=== PATIENT | male | born 1965 | race Caucasian/White ===

== ENCOUNTER 2019-05-07 05:30 | Inpatient (IN) | payer OTHER ==
[~2019-05-07] VITALS: Ht 180.3 cm; Wt 97.5 kg
[2019-05-07 05:38] VITALS: Ht 180.3 cm; Wt 97.5 kg
[2019-05-07 06:41] LABS: microscopic required? NO
[2019-05-07 06:49] LABS: BASOPHIL % 0.7 % (0-2); PLATELET COUNT 291 x10^3mcL (130-400); RED CELL DISTRIBUTION WIDTH 13.7 % (11.5-14.5)
--- NOTE | 2019-05-07 07:01 | NUR ---
PATIENT SEEN WITH COMPLAINT OF BODY PAIN, COUGH AND CHEST PAIN X 3 WEEKS. STARTED ON [place] A WEEK AGO FOR PNEUMONIA. PATIENT WAS SEEN BY DR HARPER. SALINE LOCK INSERTED. FLUID IS INFUSING ORDERED.
[2019-05-07 07:03] LABS: CALCIUM 8.9 mg/dL (8.5-10.1); CARBON DIOXIDE 25.3 mmol/L (21-32); CHLORIDE SERUM 105 mmol/L (98-107); CREATININE SERUM 0.9 mg/dL (0.7-1.3); GFR1 > 60 mL/min; GLUCOSE SERUM 226 mg/dL (74-106); POTASSIUM SERUM 4.1 mmol/L (3.5-5.1); SODIUM SERUM 141 mmol/L (136-145)
[2019-05-07 07:03] LABS: UA SPECIFIC GRAVITY >=1.030 (1.005-1.035); urine erythrocyte NEGATIVE (NEGATIVE)
--- NOTE | 2019-05-07 07:08 | NUR ---
PATIENT IS SLEEPING. FLUID IS INFUSING ORDERED.
[2019-05-07 07:09] LABS: ALBUMIN 3.4 g/dL (3.4-5.0); ALKALINE PHOSPHATASE 108 U/L (46-116); ALT/SGPT 40 U/L (16-63); AST/SGOT 23 U/L (15-37); BILIRUBIN TOTAL 0.4 mg/dL (0.20-1.00); TOTAL PROTEIN, SERUM 7.3 g/dL (6.4-8.2)
--- NOTE | 2019-05-07 07:15 | NUR ---
RESTING ASLEEP ER # [id number] HOB @ 45 degrees sr up,ivf infusing well via iv pump,one at bolus rate the other at 150 ml/hr rate.pt tolerated procedures with no incidents.awaits test results,reevaluations.jenny.
--- NOTE | 2019-05-07 07:52 | NUR ---
DIEGO GONZALEZ AT BEDSIDE FOR REEvaluations.jenny solano.o2 sat monitor on.awaits reevaluations.
--- NOTE | 2019-05-07 08:15 | NUR ---
ambulated to/from bathroom on his own with no problems.pt tolerated procedures with no incidents.jenny solano.awaits reevaluations.
[2019-05-07] MEDS ORDERED: ACARBOSE25 MG PO (08:20)
[2019-05-07] MEDS ORDERED: PROMETHAZINE W120 ML PO (08:22)
[2019-05-07] MEDS ORDERED: COZAAR25 M1 (08:24)
[2019-05-07] MEDS ORDERED: METFORMIN HYDR500 M1 (08:26)
[2019-05-07] MEDS ORDERED: VITAMIN D50000 I4 (08:27)
[2019-05-07] MEDS ORDERED: BENZONATATE200 MG (08:28)
[2019-05-07] MEDS ORDERED: CLARITIN10 MG (08:28)
[2019-05-07] MEDS ORDERED: GLUCOTROL10 MG (08:28)
--- NOTE | 2019-05-07 09:28 | NUR ---
resting monitors on jenny solano.pt tolerated procedures with no incidents.jenny solano.awaits md consult,bed assignment,reevaluations.
--- NOTE | 2019-05-07 09:59 | NUR ---
PT ENDORSED TO/ACCEPTED BY [facility],REEVALUATIONS.
--- NOTE | 2019-05-07 10:20 | NUR ---
PATIENT ARRIVED TO FLOOR VIA GUERNEY. PATIENT A/OX4, ON ROOM AIR. AMBULATORY, SKIN INTACT, BM STATED YESTERDAY. PULSES MOD, NO EDEMA NOTED. DISCUSSED WITH PATIENT PLAN OF CARE FOR TODAY AND INSTRUCTED USE OF BED CONTROLS AND CALL LIGHT. RIVER RAFTING GUIDE CARLITOS YET TO SPEAK WITH PATIENT. CALL LIGHT IN REACH.
[2019-05-07 10:52] VITALS: BP 137/86
[2019-05-07 11:23] VITALS: BP 137/86
[2019-05-07 12:15] VITALS: BP 137/86
[2019-05-07 16:46] VITALS: BP 139/85
--- NOTE | 2019-05-07 17:49 | NUR ---
PATIENT HAS MILD COMPLAINTS OF TOVAR. PRN TYLENOL ADMINISTERED. OTHER PM MEDICATIONS GIVEN AND TOLERATED. DENIES SOB BUT PRODUCTIVE COUGH REMAINS. PO TESSALON PERLES GIVEN. WILL ENDORSE TO ONCOMING NURSE. CALL LIGHT IN REACH.
--- NOTE | 2019-05-07 19:32 | NUR ---
RECEIVED PT FROM PREVIOUS SHIFT. AAO. ABLE TO MAKE NEEDS KNOWN. TELE 21, NSR. DENIES CP AND PALPITATIONS. BREATHING E/U ON RA. DENIES SOB. ENCOURAGED PT TO NOTIFY RN IF BREATHING TX NEEDED. NO S/S ACUTE DISTRESS. IV TO LFA CDI, IVF INFUSING WELL, NO ERYTHEMA OR EDEMA. CALL LIGHT WITHIN REACH. SAFETY MEASURES IN PLACE. WILL CONTINUE TO MONITOR.
--- NOTE | 2019-05-07 22:01 | NUR ---
CALLED DR. WEINSTEIN REGARDING NEED FOR ACCUCHECKS ORDER. WAITING FOR NEW ORDER.
[2019-05-07 22:21] VITALS: BP 130/79
--- NOTE | 2019-05-08 00:12 | NUR ---
PT RESTING IN BED. DENIES PAIN. DENIES SOB. NO S/S ACUTE DISTRESS. CALL LIGHT WITHIN REACH. SAFETY MEASURES IN PLACE. WILL CONTINUE TO MONITOR.
[2019-05-08 06:00] VITALS: BP 127/78
--- NOTE | 2019-05-08 06:01 | NUR ---
PT HAD RESTFUL NIGHT. DENIES SOB. DENIES PAIN. NO SIGNS OF DISTRESS. NO CHANGES OVERNIGHT. PT ASKING WHY BS LEVELS ARE HIGHER, EXPLAINED TO PT SIDE EFFECT OF SOLU-MEDROL. PT VERBALIZED UNDERSTANDING. REINFORCED DIABETIC TEACHING. ALL NEEDS MET AND ATTENDED TO. CALM AND COOPERATIVE WITH CARE. CALL LIGHT WITHIN REACH. SAFTEY MEASURES IN PLACE. WILL ENDORSE CARE TO ONCOMING SHIFT.
[2019-05-08 06:36] LABS: BASOPHIL % 0.1 % (0-2); PLATELET COUNT 311 x10^3mcL (130-400); RED CELL DISTRIBUTION WIDTH 13.8 % (11.5-14.5)
--- NOTE | 2019-05-08 06:50 | NUR ---
PAGED DR. WEINSTEIN REGARDING WBC 14.9.
[2019-05-08 06:55] LABS: CALCIUM 9.1 mg/dL (8.5-10.1); CARBON DIOXIDE 19.4 mmol/L (21-32); CHLORIDE SERUM 106 mmol/L (98-107); CREATININE SERUM 0.9 mg/dL (0.7-1.3); GFR1 > 60 mL/min; GLUCOSE SERUM 229 mg/dL (74-106); POTASSIUM SERUM 4.1 mmol/L (3.5-5.1); SODIUM SERUM 141 mmol/L (136-145)
--- NOTE | 2019-05-08 07:34 | NUR ---
RECEIVED PATIENT FROM PARKER TRUONG. PATIENT IN BED AT THIS TIME, NO COMPLAINTS, NO SOB. STATES HE IS FEELING "MUCH BETTER THAN WHEN HE CAME IN". UPDATED PATIENT TO PLAN OF CARE, PATIENT HOPING TO LEAVE TODAY FOR PRIVATE EVENT, INFORMED PATIENT THAT IT IS UP TO THE [facility] AND THE LAB WORK. PATIENT VERBALIZES UNDERSTANDING, EXPLAINED TO PATIENT HE HAS CHOICE TO SIGN OUT AMA AND TO DISCUSS WITH [facility] THIS AM. PATIENT AGREES. WILL CONTINUE TO MONITOR AND GET UPDATE FROM [facility] CARLITOS. CALL LIGHT IN REACH.
[2019-05-08 09:11] VITALS: BP 129/79
[2019-05-08 09:48] VITALS: BP 129/79
[2019-05-08] MEDS ORDERED: LEVAQUIN750 MG PO (09:49)
[2019-05-08] MEDS ORDERED: PREDNISONE20 MG PO (09:49)
--- NOTE | 2019-05-08 11:16 | NUR ---
DISCHARGE PACKET AND INSTRUCTIONS GIVEN TO PATIENT. ALL QUESTIONS ADDRESSED AND ANSWERED. PACKET AND PRESCRIPTIONS GIVEN TO PATIENT. SIGNATURES OBTAINED. IV CATHETER REMOVED AND INTACT, UPPER DOUBLER RETURNED TO [facility]. PATIENT CURRENTLY TAKING SHOWER, AWARE TO CALL FOR STAFF ONCE DONE TO BE ESCORTED DOWNSTAIRS.
--- NOTE | 2019-05-08 11:37 | NUR ---
PATIENT COMPLETED SHOWER, ESCORTED DOWNSTAIRS WITH BELONGINGS, ACCOMPANIED BY MIGUEL FOFANA.
== END 2019-05-08 11:42 | disposition home or self-care (01) | DRG 720 ==
LOC: ED 05:30 → DU 08:09
PROVIDERS: Emergency Medicine; ADMIT General Practice
DX: A41.9 Sepsis, unspecified organism (principal); E87.2 Acidosis; J18.9 Pneumonia, unspecified organism; E11.9 Type 2 diabetes mellitus without complications; Z79.84 Long term (current) use of oral hypoglycemic drugs
CPT/HCPCS: 82962; G0378; J0456; J0696; J2920; J3490; J7030; J7620; Q0092

== ENCOUNTER 2019-07-12 08:20 | Emergency (ER) | payer OTHER ==
[~2019-07-12] VITALS: Ht 180.3 cm; Wt 98.0 kg
[~2019-07-12 08:20] MED LIST: ACARBOSE25 MG PO; BENZONATATE200 MG; CLARITIN10 MG; COZAAR25 M1; GLUCOTROL10 MG; LEVAQUIN750 MG PO; METFORMIN HYDR500 M1; PREDNISONE20 MG PO; PROMETHAZINE W120 ML PO; VITAMIN D50000 I4
[2019-07-12 08:26] VITALS: Ht 180.3 cm; Wt 98.0 kg
[2019-07-12 10:21] VITALS: BP 145/82
== END 2019-07-12 10:21 | disposition home or self-care (01) ==
LOC: ED 08:20
DX: S43.401A Unspecified sprain of right shoulder joint, initial encounter (principal); R51 Headache; E11.9 Type 2 diabetes mellitus without complications; Y04.8XXA Assault by other bodily force, initial encounter; Y93.89 Activity, other specified; Y92.89 Other specified places as the place of occurrence of the external cause; Y99.8 Other external cause status

== ENCOUNTER 2020-03-30 04:38 | Emergency (ER) | payer OTHER ==
[~2020-03-30] VITALS: Ht 180.3 cm; Wt 93.6 kg
[2020-03-30 04:47] VITALS: Ht 180.3 cm; Wt 93.6 kg
[2020-03-30 06:30] VITALS: BP 120/74
== END 2020-03-30 06:30 | disposition home or self-care (01) ==
LOC: ED 04:38
DX: M54.5 Low back pain (principal); M79.652 Pain in left thigh; E11.9 Type 2 diabetes mellitus without complications; Z90.89 Acquired absence of other organs
CPT/HCPCS: J1885